=== PATIENT | female | born 1960 | race Caucasian/White ===

== ENCOUNTER 2019-08-02 20:42 | Emergency (ER) | payer OTHER ==
[~2019-08-02] VITALS: Ht 152.4 cm; Wt 86.2 kg
[2019-08-02 21:30] VITALS: BP 140/77
[2019-08-03 00:20] VITALS: BP 140/77
== END 2019-08-03 00:20 | disposition home or self-care (01) ==
LOC: MED 20:42
DX: S51.852A Open bite of left forearm, initial encounter (principal); S41.152A Open bite of left upper arm, initial encounter; W54.0XXA Bitten by dog, initial encounter; Y93.89 Activity, other specified; Y92.89 Other specified places as the place of occurrence of the external cause; Y99.8 Other external cause status
CPT/HCPCS: 73080; 73090; 73130; 99283; Q0092

== ENCOUNTER 2019-12-30 08:28 | Emergency (ER) | payer OTHER ==
[~2019-12-30] VITALS: Ht 152.4 cm; Wt 82.6 kg
--- NOTE | 2019-12-30 08:37 | NUR ---
PATIENT AMBULTED WITH STEADY GAIT TO BED 6.
[2019-12-30 08:40] VITALS: BP 127/91
--- NOTE | 2019-12-30 08:55 | NUR ---
59 YO FEMALE CO EPIGASTRIC PAIN. PT STATES PAIN IS 9/10 AND IS A BURNING SENSATION. NOT RADIATING AT THIS TIME. PT STATED SHE HAS NAUSEA AND DIARRHEA. ACTIVE BS PRESENT IN ALL 4 QUADS PT HAS NO MED HX AND IS NOT TAKING ANY RX MEDS.
[2019-12-30] MEDS ORDERED: NACL 0.9% 1,000 ML IV ONE (09:40)
[2019-12-30] MEDS ORDERED: ONDANSETRON 4 MG/2 ML VIAL IVP ONE (09:40)
--- NOTE | 2019-12-30 09:52 | NUR ---
PT TAKEN TO XRAY
[2019-12-30 10:35] LABS: BASOPHILS % (AUTO) 0.1 % (0.0-2.0); EOSINOPHILS # (AUTO) 0.1 K/uL (0-0.4); EOSINOPHILS % (AUTO) 0.6 % (0.0-4.0); HEMATOCRIT 48.7 % (36-48); HEMOGLOBIN 16.1 g/dL (12.0-16.0); LYMPHOCYTES # (AUTO) 0.8 K/uL (2.5-16.5); LYMPHOCYTES % (AUTO) 6.3 % (20.5-51.1); MEAN CORPUSCULAR HEMOGLOBIN 31 pg (27-31); MEAN CORPUSCULAR HGB CONC 33 g/dL (33-37); MEAN CORPUSCULAR VOLUME 94.5 fL (80-94); MONOCYTES # (AUTO) 0.9 K/uL (0.8-1.0); MONOCYTES % (AUTO) 7.4 % (1.7-9.3); NEUTROPHILS # (AUTO) 10.6 K/uL (1.8-7.7); NEUTROPHILS % (AUTO) 85.6 % (42.2-75.2); PLATELET COUNT (AUTO) 193 K/uL (140-450); RED BLOOD CELL COUNT(AUTO) 5.16 MIL/uL (4.20-5.40); RED CELL DISTRIBUTION WIDTH 13.5 % (11.6-13.7); WHITE BLOOD COUNT (AUTO) 12.3 K/uL (4.8-10.8)
--- NOTE | 2019-12-30 10:35 | NUR ---
MEDS AND FLUIDS GIVEN. PT STATES PAIN IS 9/10. RESTING IN BED AT THIS TIME
[2019-12-30 10:59] LABS: ALBUMIN 3.7 g/dL (3.4-5.0); ANION GAP 13.1 (8-16); CARBON DIOXIDE 25.9 mmol/L (21-32); CREATININE 0.8 mg/dL (0.6-1.3); TOTAL BILIRUBIN 0.5 mg/dL (0.0-1.0)
[2019-12-30] MEDS ORDERED: PANTOPRAZOLE 40 MG INJ VIAL IVP ONE (11:15)
[2019-12-30] MEDS ORDERED: KETOROLAC 30 MG/ML VIAL IVP ONE (11:15)
[2019-12-30 11:46] VITALS: BP 127/91
--- NOTE | 2019-12-30 11:47 | NUR ---
Patient discharged with v/s stable. Written and verbal after care instructions given and explained. Patient alert, oriented and verbalized understanding of instructions. Ambulatory with steady gait. All questions addressed prior to discharge. ID band removed. Patient advised to follow up with PMD. Rx of TARADOL AND ZOFRAN given. Patient educated on indication of medication including possible reaction and side effects. Opportunity to ask questions provided and answered.
--- NOTE | 2019-12-30 11:47 | NUR ---
IV removed, catheter intact and site benign. Applied folded 4x4 gauze and tape to stop bleeding.
== END 2019-12-30 11:47 | disposition home or self-care (01) ==
LOC: MED 08:28
DX: A08.4 Viral intestinal infection, unspecified (principal)
CPT/HCPCS: 36415; 74022; 80053; 81002; 85025; 96361; 96374; 96375; 99284; C9113; J1885; J2405; J7030

== ENCOUNTER 2021-10-05 03:44 | Emergency (ER) | payer OTHER ==
[~2021-10-05] VITALS: Ht 152.4 cm; Wt 89.8 kg
[2021-10-05 03:49] VITALS: BP 154/88
--- NOTE | 2021-10-05 04:00 | NUR ---
61 YO/F BIB SELF W C/O MID-EPIGASTRIC PAIN 9/10, CRAMP LIKE, INTEMITTENT X2 DAYS, +N/V/D. PT REPORTS MULTIPLE V/D EPISODES. PT DENIES BLOOD IN VOMIT OR STOOL. PT DENIES FEVER, CHEST PAIN , OR SOB. REPORTS SOME CHILLS. PT DENIES URINE SYMPTOMS/PROBLEMS. BOWEL SOUNDS PRESENT THROUGHOUT, ABDOMEN SOFT AND TENDER AT MID-EPIGASTRIC AREA. PT REPORTS TAKING LEDY-SELZER AND PEPTO BISMO W/O RELIEF OF SYMPTOMS X3 HOURS AGO. PT LAYING IN BED LOCKED IN LOWEST POSITION W X1 SIDERAIL UP. BREATHING EVEN AND UNLABORED. NAD NOTED, WILL CONTINUE TO MONITOR. PMH:DENIES NKA
[2021-10-05] MEDS ORDERED: ONDANSETRON 4 MG ODT PO ONE (04:10)
--- NOTE | 2021-10-05 04:17 | NUR ---
Dr. Manuel examining patient.
[2021-10-05] MEDS ORDERED: KETOROLAC 60 MG/2 ML VIAL IM ONE (04:20)
--- NOTE | 2021-10-05 04:31 | NUR ---
PT REPORTS UNABLE TO PROVIDE URINE AT THIS TIME. WILL ATTEMPT AGAIN IN A FEW MOMENTS.
[2021-10-05] MEDS ORDERED: LOPE-289 PO (04:33)
[2021-10-05] MEDS ORDERED: IBUP-2213 PO (04:33)
[2021-10-05] MEDS ORDERED: ONDA8TAB87 PO (04:33)
[2021-10-05 04:40] VITALS: BP 154/88
--- NOTE | 2021-10-05 04:40 | NUR ---
Patient discharged with v/s stable. Written and verbal after care instructions given and explained. Patient alert, oriented and verbalized understanding of instructions. Ambulatory with steady gait. All questions addressed prior to discharge. ID band removed. Patient advised to follow up with PMD. Rx of IBUPROFEN, LOPERAMIDE HCL, ONDANSETRON given. Patient educated on indication of medication including possible reaction and side effects. Opportunity to ask questions provided and answered.
== END 2021-10-05 04:40 | disposition home or self-care (01) ==
LOC: MED 03:44
DX: R10.13 Epigastric pain (principal); R11.2 Nausea with vomiting, unspecified; R19.7 Diarrhea, unspecified
CPT/HCPCS: 96372; 99283; J1885; Q0162

== ENCOUNTER 2023-04-28 10:20 | Emergency (ER) | payer OTHER ==
[~2023-04-28] VITALS: Ht 152.4 cm; Wt 81.6 kg
[~2023-04-28 10:20] MED LIST: IBUP-2213 PO; LOPE-289 PO; ONDA8TAB87 PO
[2023-04-28 10:38] VITALS: BP 161/93
--- NOTE | 2023-04-28 12:58 | NUR ---
PT W/C ASSISTED TO BED 2
--- NOTE | 2023-04-28 13:10 | NUR ---
RIGHT KNEE PAIN AND SWELLING, SP FALL THIS MORNING. DENIES KO, DENIES LOC.
[2023-04-28] MEDS ORDERED: KETOROLAC 60 MG/2 ML VIAL IM ONE (13:45)
[2023-04-28] MEDS ORDERED: IBUP-2213 PO (13:48)
[2023-04-28 14:47] VITALS: BP 145/87
== END 2023-04-28 14:47 | disposition home or self-care (01) ==
LOC: MED 10:20
DX: S80.01XA Contusion of right knee, initial encounter (principal); S09.90XA Unspecified injury of head, initial encounter; Z79.899 Other long term (current) drug therapy; X58.XXXA Exposure to other specified factors, initial encounter; Y93.89 Activity, other specified; Y92.89 Other specified places as the place of occurrence of the external cause; Y99.8 Other external cause status
CPT/HCPCS: 73562; 96372; 99283; J1885

== ENCOUNTER 2023-11-02 09:41 | Emergency (ER) | payer OTHER ==
[~2023-11-02] VITALS: Ht 152.4 cm; Wt 72.6 kg
[2023-11-02 09:59] VITALS: BP 137/76; PULSE 73; RESP 20; TEMP 97; O2SAT 98
[2023-11-02] MEDS ORDERED: NAPR-54 PO (11:49)
[2023-11-02 12:22] VITALS: BP 137/76; PULSE 73; RESP 20; TEMP 97; O2SAT 98
[2023-11-02] MEDS ORDERED: NAPROXEN 500 MG TAB PO SCH (21:00)
== END 2023-11-02 12:23 | disposition home or self-care (01) ==
LOC: MED 09:41
DX: M25.562 Pain in left knee (principal); Z79.899 Other long term (current) drug therapy
CPT/HCPCS: 29505; 73562; 99283